=== PATIENT | female | born 1990 | race Two or more races ===

== ENCOUNTER 2021-06-01 21:02 | Emergency (ER) | payer BC, MEDICAID ==
[~2021-06-01] VITALS: Ht 160 cm; Wt 95.5 kg
[2021-06-01 21:17] VITALS: BP 129/86
[2021-06-01] MEDS ORDERED: famotidine 20mg tablet PO ONE (22:40)
[2021-06-01] MEDS ORDERED: predniSONE 20 mg tablet PO ONE (22:40)
== END 2021-06-02 00:05 | disposition home or self-care (01) ==
LOC: ER 21:03
DX: Z02.89 Encounter for other administrative examinations (principal); R22.0 Localized swelling, mass and lump, head; J45.909 Unspecified asthma, uncomplicated; Z91.013 Allergy to seafood
CPT/HCPCS: 99283; J7512